=== PATIENT | female | born 1955 | race Caucasian/White ===

== ENCOUNTER 2016-12-01 14:04 | Emergency (ER) | payer BC ==
[~2016-12-01] VITALS: Ht 170.2 cm; Wt 139.0 kg
[~2016-12-01 14:04] MED LIST: COLACE100 MG PO; LISINOPRIL20 MG PO; OXAYDO5 MG PO
[2016-12-01 18:08] LABS: EOSINOPHIL (%) 1.2 % (0-5); EOSINOPHIL COUNT 0.1 K/uL (0-0.3); HEMATOCRIT 36.6 % (36.0-46.0); IMMATURE GRANULOCYTE (%) 0.3 % (0.0-0.7); IMMATURE GRANULOCYTE COUNT 0.2 K/uL; LYMPHOCYTE COUNT 1.3 K/uL (1.0-2.8); MCH 27.1 PG (29.0-34.0); MCHC 32.8 G/DL (30.0-36.0); MCV 82.6 FL (83-99); MONOCYTE (%) 8.8 % (3-12); MONOCYTE COUNT 0.5 K/uL (0-0.8); NEUTROPHIL COUNT 4.1 K/uL (1.8-6.4); PLATELET COUNT 203 K/uL (156-360); RBC DIS.WIDTH-CV 15.7 % (11.8-14.6); RBC DIS.WIDTH-SD 46.8 % (39-53); RED BLOOD COUNT 4.43 M/uL (3.80-5.20)
[2016-12-01 18:17] LABS: CHLORIDE 108 mEq/L (99-109); SODIUM 143 mEq/L (136-147)
[2016-12-01 18:19] LABS: GLUCOSE 113 mg/dL (70-99)
[2016-12-01 18:20] LABS: ANION GAP 9 MEQ/L (2-14)
[2016-12-01 18:22] LABS: GFR ESTIMATE (CALCULATED) > 59 mL/min/
[2016-12-01 18:23] LABS: UREA NITROGEN (BUN) 13 mg/dL (9-23)
[2016-12-01] MEDS ORDERED: CLEOCIN300 MG PO (20:30)
[2016-12-01 21:10] VITALS: BP 157/79
== END 2016-12-01 21:11 | disposition home or self-care (01) ==
LOC: EME 14:04
PROVIDERS: Emergency Medicine
DX: N61.0 Mastitis without abscess (principal); C50.912 Malignant neoplasm of unspecified site of left female breast; I10 Essential (primary) hypertension
CPT/HCPCS: 80048; 83605; 85025; 87040; 99281; 99285; J1885; J2405; J2543; J7030